=== PATIENT | male | born 1965 | race African-American/Black ===

== ENCOUNTER 2017-09-03 10:59 | Emergency (ER) | payer MEDICAID ==
[~2017-09-03] VITALS: Ht 167.6 cm; Wt 68.0 kg
[2017-09-03] MEDS ORDERED: SODIUM CHLORIDE 0.9% 1,000 ML IV ONE (13:28)
[2017-09-03 14:54] LABS: EOSINOPHILS % 0.3 % (0.0-5.0); HEMOGLOBIN. 7.5 g/dL (14.0-18.0); LYMPHOCYTES % 31.4 % (20.0-50.0); MEAN CORPUSCULAR HEMOGLOBIN 17.5 pg (28.0-32.0); MEAN CORPUSCULAR VOLUME 60.5 fL (80.0-94.0); MONOCYTES % 13.7 % (2.0-8.0); NEUTROPHILS % 53.6 % (40.0-76.0); RED CELL DISTRIBUTION WIDTH 22.1 % (11.6-14.6)
[2017-09-03 14:58] LABS: CHLORIDE 104 mEq/L (98-107)
[2017-09-03 14:59] LABS: PROTHROMBIN TIME 10.9 sec (9.4-11.6)
[2017-09-03 15:07] LABS: CARBON DIOXIDE 27 mEq/L (21-32)
[2017-09-03 15:09] LABS: PLATELET ESTIMATE SLIGHTLY DECREASED
[2017-09-03 15:10] LABS: MEAN PLATELET VOLUME 8.8 fl (7.4-10.4); PLATELET 108 x1000/uL (130-400)
[2017-09-03] MEDS ORDERED: POTASSIUM CHLORIDE 20MEQ TABLET SR PO ONE (15:30)
[2017-09-03 16:50] LABS: CLARITY URINE CLOUDY (CLEAR); COLOR URINE DARK YELLOW (YELLOW); KETONES URINE TRACE (NEGATIVE); LEUKOCYTE ESTERASE URINE NEGATIVE (NEGATIVE); NITRITE URINE NEGATIVE (NEGATIVE); OCCULT BLOOD URINE NEGATIVE (NEGATIVE); PH URINE 5.5 (4.5-8.0); PROTEIN URINE 2+ (NEGATIVE); SPECIFIC GRAVITY URINE 1.034 (1.005-1.030)
[2017-09-03] MEDS ORDERED: FOLIC ACID/VITAMIN B COMP W-C TABLET PO SCH (17:00)
[2017-09-03 17:17] LABS: HEPATITIS B SURFACE ANTIGEN NEGATIVE
[2017-09-03 17:45] LABS: HEPATITIS B CORE AB IGM NEGATIVE
[2017-09-03 17:46] LABS: HEPATITIS A AB IGM NEGATIVE (NEGATIVE)
[2017-09-03 18:15] VITALS: BP 138/60
== END 2017-09-03 18:30 | disposition home or self-care (01) ==
LOC: ER 12:50
DX: D64.9 Anemia, unspecified (principal); K76.9 Liver disease, unspecified; D61.818 Other pancytopenia; E87.6 Hypokalemia; D69.6 Thrombocytopenia, unspecified; F17.200 Nicotine dependence, unspecified, uncomplicated; Z88.6 Allergy status to analgesic agent
CPT/HCPCS: 36415; 71045; 76700; 80053; 81001; 83690; 85025; 85610; 86705; 86709; 86803; 87340; 93005; 96360; 96361; 99285; J7030

== ENCOUNTER 2019-02-15 08:38 | Emergency (ER) | payer MEDICAID, OTHER ==
[~2019-02-15] VITALS: Ht 167.6 cm; Wt 100.0 kg
[2019-02-15] MEDS ORDERED: SODIUM CHLORIDE 0.9% 1,000 ML IV ONE (10:30)
[2019-02-15] MEDS ORDERED: KETOROLAC 30MG/ML VIAL IV STA (10:30)
[2019-02-15] MEDS ORDERED: TETANUS, DIPHTHERIA, PERTUSSIS VAC/PF 0.5ML (>7YR OLD) IM ONE (10:30)
[2019-02-15 11:38] LABS: EOSINOPHILS % 0.5 % (0.0-5.0); HEMATOCRIT. 33.2 % (42.0-52.0); HEMOGLOBIN. 10.4 g/dL (14.0-18.0); MEAN CORPUSCULAR HEMOGLOBIN 22.3 pg (28.0-32.0); MEAN CORPUSCULAR VOLUME 71.4 fL (80.0-94.0); MEAN PLATELET VOLUME 8.9 fl (7.4-10.4); MONOCYTES % 7.8 % (2.0-8.0); NEUTROPHILS % 67.7 % (40.0-76.0); PLATELET 151 x1000/uL (130-400); RED BLOOD CELL COUNT 4.65 mill/uL (4.7-6.1); RED CELL DISTRIBUTION WIDTH 20.8 % (11.6-14.6)
[2019-02-15 11:44] LABS: CHLORIDE 109 mEq/L (98-107)
[2019-02-15 11:51] LABS: ETHANOL BLOOD 104 mg/dL
[2019-02-15 13:12] LABS: CLARITY URINE CLEAR (CLEAR); COLOR URINE YELLOW (YELLOW); KETONES URINE NEGATIVE (NEGATIVE); LEUKOCYTE ESTERASE URINE NEGATIVE (NEGATIVE); NITRITE URINE NEGATIVE (NEGATIVE); OCCULT BLOOD URINE NEGATIVE (NEGATIVE); PH URINE 6.5 (4.5-8.0); PROTEIN URINE NEGATIVE (NEGATIVE); SPECIFIC GRAVITY URINE 1.013 (1.005-1.030); UROBILINOGEN URINE 0.2 E.U./dL (0.2-1.0)
[2019-02-15 13:47] LABS: *AMPHETAMINES SCREEN URINE NEGATIVE (NEGATIVE); *BARBITURATES SCREEN URINE NEGATIVE (NEGATIVE); *BENZODIAZEPINES SCREEN URINE NEGATIVE (NEGATIVE); *COCAINE SCREEN URINE NEGATIVE (NEGATIVE); CANNABINOID URINE SCREEN PRESUMTIVE POSITIVE (NEGATIVE); METHADONE URINE SCREEN NEGATIVE (NEGATIVE)
[2019-02-15 13:48] LABS: OPIATES URINE SCREEN NEGATIVE (NEGATIVE); PHENCYCLIDINE URINE SCREEN NEGATIVE (NEGATIVE)
[2019-02-15 14:00] VITALS: BP 135/74
[2019-02-15] MEDS ORDERED: BACITRACIN/POLYMYXIN B SULFATE OINT 15GM TOP ONE (14:45)
[2019-02-15] MEDS ORDERED: IBUPROFEN 600MG TABLET PO ONE (14:45)
== END 2019-02-15 14:30 | disposition home or self-care (01) ==
LOC: ER 08:38
DX: T51.8X1A Toxic effect of other alcohols, accidental (unintentional), initial encounter (principal); S09.8XXA Other specified injuries of head, initial encounter; F41.9 Anxiety disorder, unspecified; R07.9 Chest pain, unspecified; F17.200 Nicotine dependence, unspecified, uncomplicated; Z88.5 Allergy status to narcotic agent; W18.39XA Other fall on same level, initial encounter; Y93.89 Activity, other specified; Y92.89 Other specified places as the place of occurrence of the external cause; Y99.8 Other external cause status
CPT/HCPCS: 36415; 70450; 71045; 73110; 80053; 80305; 80320; 81003; 85025; 90471; 90715; 93005; 96374; 99284; J1885; J7030; G0480

== ENCOUNTER 2025-01-20 17:30 | Emergency (ER) | payer OTHER ==
[~2025-01-20] VITALS: Ht 175.3 cm; Wt 77.0 kg
[2025-01-20 17:32] VITALS: TEMP 36.8; O2SAT 98
[2025-01-20] MEDS: TRAMADOL 50MG TABLET PO ONE (19:06)
[2025-01-20] MEDS: IBUPROFEN 800MG TABLET PO ONE (19:06)
[2025-01-20] MEDS ORDERED: IBUP-2029 MT (23:51)
[2025-01-20] MEDS ORDERED: TRAM-534 MT (23:51)
[2025-01-21 00:07] VITALS: BP 148/90; PULSE 91; RESP 16; O2SAT 97
== END 2025-01-21 00:07 | disposition home or self-care (01) ==
LOC: ER 17:30
DX: S80.02XA Contusion of left knee, initial encounter (principal); S00.83XA Contusion of other part of head, initial encounter; E11.9 Type 2 diabetes mellitus without complications; F41.9 Anxiety disorder, unspecified; F10.90 Alcohol use, unspecified, uncomplicated; Z79.899 Other long term (current) drug therapy; Z88.8 Allergy status to other drugs, medicaments and biological substances; W19.XXXA Unspecified fall, initial encounter; Y93.89 Activity, other specified; Y92.89 Other specified places as the place of occurrence of the external cause; Y99.8 Other external cause status; Y90.9 Presence of alcohol in blood, level not specified
CPT/HCPCS: 73560; 99283